=== PATIENT | male | born 1975 | race Caucasian/White ===

== ENCOUNTER 2024-11-30 12:13 | Inpatient (IN) | payer MEDICAID ==
[~2024-11-30] VITALS: Ht 175.3 cm; Wt 137.2 kg
--- NOTE | 2024-11-30 12:36 | Physician Documentation ---
History of Present Illness ~ Chief Complaint: Wound Stated Complaint: WOUND Time Seen by MD: 12:35 OK to notify your PCP?: Yes Source: patient, RN/MD, RN notes reviewed, old records Mode of Arrival: POV Exam Limitations: no limitations HPI 49 year old male with history of diabetes presents to the emergency department from wound care. Patient was not sent with a report from wound care but he states he is up here to receive antibiotics for the wound on his right foot. The wound is currently bandaged and his wound has been present for two years. He states his A1c is 7.2 and that he does not smoke. Wound care was called and inquired about additional information regarding the patient. They stated that yesterday the patient was working on a car and after all of that his wound became red and started discharging clear fluid. Additionally he began experiencing fevers and chills and they state he needs IV antibiotics. They state that his wound is deep but has not yet hit the bone. Patient denies any other associated symptoms at this time. Patient denies any other alleviating or exacerbating factors. Medication Reconciliation Allergies: Coded Allergies: No Known Allergies (Unverified , 04/16/23) Past Medical History Past Medical History: Diabetes Smoking Status: Former smoker Review of Systems All Other Systems at this time: Reviewed and Negative ROS As stated above in the HPI, otherwise all systems are reviewed and negative. Physical Exam Vital Signs: RN Vital Signs have been reviewed: Yes, Temperature: 98.8, Source: Oral, Heart Rate: 74, Respiratory Rate: 16, BP: 143/81, Pulse Oximetry: 96, Weight: 137.200 Oxygen Flow Rate: 0 Pulse Oximetry Reflects: adequate oxygenation Physical Exam General: The patient is well developed, well nourished, nontoxic appearing and is in no acute distress. Skin: Goodman, warm and dry with no rashes. HEENT: Head was normocephalic and atraumatic. Eyes - pupils equal, round, reactive to light and accommodation. Extraocular movements were intact. Conjunctivae were nonicteric. Ears - bilateral tympanic membranes were normal. The mouth and oropharynx were clear with moist mucous membranes. There were no pharyngeal exudates or erythema. Neck: Supple and nontender. There was no jugular venous distention, lymphadenopathy, thyromegaly or masses. Chest: Clear to auscultation bilaterally without wheezes, rales or rhonchi. No accessory muscle use. No dullness to percussion. Heart: Rate regular and rhythmic. S1, S2. No murmurs. Palpation of the chest wall was normal. No rubs or thrills. Abdomen: Soft, nontender and nondistended. Positive bowel sounds. No guarding or rebound. No hepatosplenomegaly or palpable masses. Extremities: Patients right foot is bandaged and he has an amputated toe. No cyanosis, clubbing or edema. The patient moves all extremities. Pulses were equal and symmetric. Neurologic: Cranial nerves II-XII were intact. Sensation was intact to light touch throughout. Motor strength was 5/5 in all four extremities. Deep tendon reflexes were intact in both upper and lower extremities. Psychologic: The patient was oriented to person, place and time. The patient demonstrated appropriate judgement and insight. Progress Progress Note 1230: The case was discussed with Dr. Valles who was informed on the patients case and kindly agreed to admission of the patient. Results/Orders Reviewed/noted all lab results: Yes Results/Orders Orders - TRISTON DEJESUS MD Ct Lower Extremity (11/30/24 13:50) Culture Blood (11/30/24 12:53) Page Hospitalist (11/30/24 12:55) Fill Out Med Reconciliation (11/30/24 12:55) Completed Orders - TRISTON DEJESUS MD Ct Lower Extremity (11/30/24 13:50) Normal Saline 1000ml (Sodium Chloride 10 (11/30/24 12:55) Procalcitonin (11/30/24 12:53) Vancomycin*Pharmacy To Dose* (Vancomycin (11/30/24 12:55) Piperacillin/Tazo 3.375gm/50ml (Zosyn 3. (11/30/24 12:55) Lacticsepsis (11/30/24 12:53) Vancomycin/Ns 1 Gm Add-Kyburz (Vancomyc (11/30/24 14:00) Medications Received in ER Medications (Trade) Dose Ordered Sig/Merissa Route PRN Reason Start Time Stop Time Status Last Admin Dose Admin (sodium chloride 1000ml IV soln) 2,000 ml ONCE ONCE IV 11/30/24 12:55 11/30/24 12:56 DC 11/30/24 13:40 2,000 ML Piperacillin/ Tazobactam/ Dextrose 50 ml @ 100 mls/hr ONCE ONCE IV 11/30/24 12:55 11/30/24 13:24 DC 11/30/24 13:39 100 MLS/HR Vital Signs 11/30/24 11/30/24 12:30 13:19 Temp 98.8 Pulse 74 Resp 16 16 B/P (MAP) 143/81 Pulse Ox 96 O2 Flow Rate 0 Laboratory Tests Test 11/30/24 13:10 Lactic Acid Level 1.5 Procalcitonin < 0.05 Microbiology Date/Time Source Procedure Growth Status 11/30/24 13:14 Blood Hand Left Blood Culture - Preliminary NEGATIVE (LESS THAN 24 HOURS) Resulted Re-Evaluation Re-Evaluation : Re-Evaluation: Improved Progress Patient was seen and examined. Patient was given reassurance. Patient was found to have a deep ulcer into the right great toe. Antibiotics were given patient was sent over from wound care were cultures were obtained laboratory work was just obtained. Patient is WBCs 7.8 H and H is 12 and 37 with 77 neutrophils. Sed rate is 78. Chemistry is also within normal limits. C- reactive protein is elevated 10.33. Tox screen is negative. Patient received antibiotics vancomycin as well as Zosyn. Patient received fluids. CT scan was obtained. Patient is otherwise doing much better and was admitted for additional wound care possible MRI to rule out osteomyelitis. Continuous desk monitor interpretation shows normal sinus rhythm heart rate 70s, no ectopy, normal, my interpretation. Pulse oximetry monitor interpretation shows normal oxygenation at 96% room air, normal, my interpretation. EKG/XRAY/CT/US/VASC/MRI CT : Impression CLINICAL INFORMATION: Infection. Osteomyelitis. TECHNIQUE: Axial CT images of the right foot were obtained without IV contrast. Coronal and sagittal reformatted images were obtained, reviewed, and stored. All CT scans at this medical facility are performed using dose modulation techniques as appropriate to a performed exam including the following: Automated exposure control was utilized; adjustment of the MA and/or KV according to patient size; and use of iterative reconstruction technique. CTDIvol = 16.38, 14.36, 0.07, 0.07 mGy DLP = 1151.7 mGy-cm COMPARISON: Radiographs dated 11/30/2024. FINDINGS: Postsurgical changes of prior amputation at the 1st MTP joint. There is moderate to marked soft tissue edema and locules of gas adjacent to the amputation site. There is a wound at the plantar aspect of the amputation site. No erosive changes are seen. No cortical destruction. The rest of the osseous structures appear intact. IMPRESSION: 1. Wound at the plantar aspect of the amputation stump of the 1st digit with associated soft tissue inflammatory changes, likely cellulitis and phlegmon. 2. No erosive changes or cortical destruction are seen to suggest osteomyelitis. Correlate with clinical findings. If there remains clinical suspicion for osteomyelitis, MRI could be obtained Electronically Signed by:BREEZY GOODE DO Date & Time: 11/30/24 4799 Ultrasound : Impression EXAM: [facility] VENOUS HISTORY: Swelling COMPARISON: [facility] VL VENOUS on DOS: 04/07/24 TECHNIQUE: Duplex Doppler evaluation of the deep venous systems of both lower extremities from the common femoral veins to the popliteal veins including color Doppler and spectral/pulsed waveform analysis was performed. FINDINGS: RIGHT SIDE: The common femoral vein demonstrates appropriate compressibility and waveform variability . There is compressibility/patency of the great saphenous vein at the proximal thigh . The femoral vein demonstrates appropriate compressibility and waveform variability . The deep femoral vein demonstrates appropriate compressibility and waveform variability . The popliteal vein demonstrates appropriate compressibility and waveform variability . There is normal compressibility at the tibioperoneal trunk. Foramina hypervascular right inguinal lymph node. LEFT SIDE: The common femoral vein demonstrates appropriate compressibility and waveform variability . There is compressibility/patency of the great saphenous vein at the proximal thigh . The femoral vein demonstrates appropriate compressibility and waveform variability . The deep femoral vein demonstrates appropriate compressibility and waveform variability . The popliteal vein demonstrates appropriate compressibility and waveform variability . There is normal compressibility at the tibioperoneal trunk. IMPRESSION: 1. No right or left femoropopliteal venous thrombosis. 2. Question reactive inguinal lymph node. If clinical concern/symptoms persist or worsen, short-interval follow-up study is suggested. Dictated by:CYNDY STOCK MD Dictation date and time:11/30/24 4472 Medical Decision Making Additional info obtained from: old records Differential Dx:Considerations: Include: Abscess, Cellulitis, Dressing change, Healing wound, Other Departure Time of Disposition: 15:01 Disposition: 01 HOME / SELF CARE / HOMELESS Admitted to Inpatient Unit: yes, to hospitalist Impression: Primary Impression: Osteomyelitis Qualified Codes: M86.671 - Other chronic osteomyelitis, right ankle and foot Additional Impression: Diabetic wound ulcer Condition: Stable Referrals: NO PRIMARY CARE PROVIDER (PCP) Education Educated: Patient Educated regarding: diagnosis, prognosis, need for follow up Signature Scribe Signature: Scribed for Triston Dejesus MD by Elia Naylor . 11/30/24 12:56 Attestation: The note accurately reflects work and decisions made by me.Triston Dejesus MD 11/30/24 12:36 TRISTON DEJESUS MD Nov 30, 2024 12:36 ELIA KING Nov 30, 2024 12:58
--- NOTE | 2024-11-30 13:31 | HISTORY AND PHYSICAL ---
History & Physical Providers to Chief complaint, a right foot and right distal lower leg pain swelling redness, right foot open wound plantar ~ History of Present Illness Reason for Admit\Complaint: As above History of Present Illness This is a 49 year old male with history of diabetes mellitus type 2, history of peripheral neuropathy bilateral lower leg, anemia hemoglobin 12.4, morbid obesity BMI 44, hypoalbuminemia, coronary artery disease [place] stent x1, right knee meniscectomy, presented today to emergency department chief complaint a right f oot pain open wound associated with redness swelling and warm to touch, in addition patient presents to the emergency department from wound care. Patient was not sent with a report from wound care but he sates he is up here to receive antibiotics for the wound on his right foot. The wound is currently bandaged and his wound has been present for two years. He states his A1c is 7.2 and that he does not smoke. Wound care was called and inquired about additional information regarding the patient. They stated that yesterday the patient was working on a car and after all of that his wound became red and started discharging clear fluid. Ad ditionally he began experiencing fevers and chills and they state he needs IV antibiotics. They state that his wound is deep but has not yet hit the bone. Patient denies any other associated symptoms at this time. Patient denies any other alleviating or exacerbating factors. In emergency department he was evaluated by physician was diagnosed with a right foot cellulitis, diabetic open wound plantar, started on IV antibiotics, and decision was made to admit patient for further evaluation treatment. No additional complaint or concern. Allergies: Coded Allergies: No Known Allergies (Unverified , 04/16/23) Active prescriptions I reviewed reconciled Home Medications Pending Past Medical History Past Medical History As in HPI Past Surgical History Surgical History Comment As in HPI Past Social History Social History Comment Deny illicit drug abuse tobacco alcohol use live with the family good social support Health Maintenance Health Maintenance Noncontributory ROS ROS Constitutional : no fever , no chills, or weakness. No diaphoresis. Allergic/Immunologic, no lymphadenopathy, no hives, no skin eruptions. Eyes, no recent visual changes, no eye pain, no photophobia. Ears, nose, mouth, throat, no sore throat, no nosebleed, no ear pain. Cardiovascular, no palpitations, skipped beats, chest pain, no peripheral edema, Respiratory, no dyspnea, orthopnea, cough, hemoptysis, chest wall pain. Gastrointestinal, no abdominal pain, nausea, vomiting, constipation or diarrhea. : no dysuria, hematuria, pelvic pain, urethral d/c. Endocrine, no polyuria, polydipsia, recent unintentional weight gain or loss. Hematologic/Lymphatic, no petechiae, no enlarged lymph nodes, no bone pain. Integumentary, no rash, no skin lesions, Musculoskeletal, no muscle aches, or pain, no muscle cramps, no recent change in gait, positive for right foot open wound plantar, pain swelling as well Neurological, no dizziness, no headache, no syncope, no paresthesia. Psychiatric, no delusions, visual hallucinations, or hearing hallucinations. ROS - in rest is as in HPI. Exam Vitals: Vital Signs Date Time Temp Pulse Resp B/P (MAP) Pulse Ox O2 Delivery O2 Flow Rate FiO2 11/30/24 13:19 16 11/30/24 12:30 98.8 74 96 0 Vital signs, stable ,afebrile. Pulse Oximetry reflects adequate oxygenation. BMI is 44, weight 137 kg General: well developed, well nourished. Awake , alert, and oriented x4, resting comfortably in the bed, in no acute distress . Skin: Warm, dry, no pallor, no rash or petechiae. HEENT: Atraumatic, normocephalic, EOMI, anicteric sclera B; pink conjunctiva; PERRLA, normal oropharynx, moist oral and nasal mucosa. Tympanic membrane , nose , throat clear. Neck: Trachea midline. Supple, full range of motion, no JVD, bruit , he patojugular reflex , lymphadenopathy or masses, or other lesions Cardiac: Regular rhythm, regular rate no murmurs, rubs, or gallops. Normal S1 and S2, no S3 noticed. PMI is normal. Respiratory: Equal breath sounds bilaterally, no tachypnea; lungs clear to auscultation bilaterally, no wheezing ,rub or rales, or crackles. Chest wall is symmetric and without deformity. No signs of trauma. Chest wall is nontender. No signs of respiratory distress. Resonance is normal upon percussion bilaterally. Gastrointestinal: Abdomen symmetric, non-distended, soft, non-tender, normal bowel sounds x4 quadrant, normoactive, no hepatosplenomegaly , no masses , no bruit, no flank pain bilaterally. No voluntary guarding, rebound, or rigidity. No tenderness to percussion. No pulsatile masses. Equal femoral pulses. No Li's sign or McBurney point tenderness. Back; no CVA tenderness bilaterally, no deformities. Neck and back are without deformity as well. No tenderness noted on palpation of the spinous processes. Spinous processes are midline. Cervical, thoracic, and lumbar paraspinal muscles are not tender and are without spasm. : normal external genitalia, without lesions, swelling, masses or tenderness. Musculoskeletal: Extremities, normal range of motion, non-tender, muscle strength 5/5 x 4. Negative Homans signs bilaterally on lower extremity. Distal pulses full symmetrical, no clubbing, cyanosis , edema. Locally, right foot and distal right lower leg, plus two edema hot to touch, tender to palpation, a right foot distal plantar open wound approximately 2 cm in diameter, associated with scattered seropurulent discharge Neurological: Speech is clear, alert, and oriented x 4. No motor or sensory deficit, deep tendon reflexes normal, cerebellar intact. Cranial nerves II-XII intact. Psych: Alert and or appropriate, normal affect. Vascular: Good distal pulses, which are equal x4; capillary refill less than 2 seconds. Lymphatic, no lymphadenopathy. Advance Care Planning Advanced Care plannin - 30 Minutes Additional Plan Assessment Diabetes mellitus type 2 poor control A right foot cellulitis A right distal lower leg cellulitis A right distal foot plantar diabetic open wound, infected Morbid obesity BMI 44 Peripheral neuropathy bilateral lower extremity secondary to diabetes mellitus type 2 Anemia hemoglobin 12.4 Coronary artery disease, history of [place] stent times on History of right knee meniscectomy Plan IV antibiotics, analgesics CT right foot pending Hyperglycemia sliding scale Doppler venous ultrasound of right lower extremity pending Additional lab work pending Wound care consult Reconciled home medications May need orthopedic surgeon evaluation DVT gastropathy prophylaxis addressed Sepsis Screening Reassessment Date: Nov 30, 2024 Date of Service: Nov 30, 2024 Billing Provider: DEVANTE GARLAND MD Common Visit Codes: 33239-PAJISTC INP/OBS CARE (HIGH) Secondary Visit Codes: 72484-[id number] CARE PLAN 30 MINUTES DEVANTE GARLAND MD Nov 30, 2024 13:31
[2024-11-30] MEDS: piperacillin/tazo 3.375gm/50ml 50 ML IV ONE (13:39)
[2024-11-30] MEDS ORDERED: magnesium hydroxide 30ml (MOM) UD suspension PO PRN ×2 (13:40→13:45)
[2024-11-30] MEDS ORDERED: potassium Cl 20 mEq SR tablet PO PRN ×2 (13:40)
[2024-11-30] MEDS ORDERED: magnesium sulf-water 2g/50mL 50 ML IV PRN (13:40)
[2024-11-30] MEDS ORDERED: potassium Cl 40MEQ/1/2NS 520ml 520 ML IV PRN (13:40)
[2024-11-30] MEDS ORDERED: ondansetron/PF 4mg/2ml inj IV PRN ×2 (13:40→13:45)
[2024-11-30] MEDS ORDERED: mag hydrox/Alum hydrox/simeth 30ml oral suspension PO PRN ×2 (13:40→13:45)
[2024-11-30] MEDS: normal saline 1000ML IV soln IV ONE (13:40)
[2024-11-30] MEDS ORDERED: magnesium Cl slow-release 64mg tablet PO PRN (13:40)
[2024-11-30] MEDS ORDERED: magnesium sulf-water 4G/100mL 100 ML IV PRN (13:40)
[2024-11-30] MEDS ORDERED: acetaminophen 325mg tablet PO PRN ×3 (13:40→13:45)
[2024-11-30] MEDS ORDERED: ondansetron 4mg rapidly disintigrating tab PO PRN (13:45)
[2024-11-30] MEDS ORDERED: morphine 2 MG/ML inj. syringe IV PRN ×2 (13:45)
[2024-11-30] MEDS ORDERED: metoclopramide 5 mg/ml inj IV PRN (13:45)
[2024-11-30] MEDS ORDERED: acetaminophen 650mg rectal suppository RC PRN (13:45)
[2024-11-30] MEDS ORDERED: diphenhydrAMINE 25mg capsule PO PRN (13:45)
[2024-11-30] MEDS ORDERED: HYDROcodone/acetaminophen 10/325mg tab PO PRN (13:45)
[2024-11-30] MEDS ORDERED: HYDROcodone/acetaminophen 5mg/325mg tablet PO PRN (13:45)
[2024-11-30] MEDS ORDERED: diphenhydrAMINE 50 mg/ml inj IV PRN (13:45)
[2024-11-30] MEDS ORDERED: bisacodyl 10mg suppository rectal RC PRN (13:45)
[2024-11-30] MEDS ORDERED: glucagon, human recombinant 1mg kit SUBCUT PRN (13:50)
[2024-11-30] MEDS ORDERED: dextrose 50%-water 50ml dispensing syringe IV PRN ×2 (13:50)
[2024-11-30] MEDS ORDERED: DEXTROSE 15 GM of carb/4 tabs (each vial/BOTTLE has 4 tablets) PO PRN ×2 (13:50)
[2024-11-30 14:48] LABS: APTT 28 SECONDS (22-32); INR 1.1 INR; PROTHROMBIN TIME 10.9 SECONDS (9.0-12.0)
--- NOTE | 2024-11-30 14:52 | RADIOLOGY REPORT ---
CLINICAL INFORMATION: Infection. Osteomyelitis. TECHNIQUE: Axial CT images of the right foot were obtained without IV contrast. Coronal and sagittal reformatted images were obtained, reviewed, and stored. All CT scans at this medical facility are pe rformed using dose modulation techniques as appropriate to a performed exam including the following: Automated exposure control was utilized; adjustment of the MA and/or KV according to patient size; an d use of iterative reconstruction technique. CTDIvol = 16.38, 14.36, 0.07, 0.07 mGy DLP = 1151.7 mGy- cm COMPARISON: Radiographs dated 11/30/2024. FINDINGS: Postsurgical changes of prior amputation at the 1st MTP joint. There is moderate to marked soft tissue edema and locules of gas adjacent to the amputation site. There is a wound at the planta r aspect of the amputation site. No erosive changes are seen. No cortical destruction. The rest of t he osseous structures appear intact. IMPRESSION: 1. Wound at the plantar aspect of the amputation stump of the 1st digit with associated soft tissue i nflammatory changes, likely cellulitis and phlegmon. 2. No erosive changes or cortical destruction are seen to suggest osteomyelitis. Correlate with clini sam findings. If there remains clinical suspicion for osteomyelitis, MRI could be obtained
[2024-11-30 14:54] LABS: HEMOGLOBIN A1C 8.7 % (4.5-6.2)
--- NOTE | 2024-11-30 14:54 | VASCULAR REPORT ---
EXAM: [facility] VL VENOUS HISTORY: Swelling COMPARISON: [facility] VL VENOUS on DOS: 04/07/24 TECHNIQUE: Duplex Doppler evaluation of the deep venous systems of both lower extremities from the co mmon femoral veins to the popliteal veins including color Doppler and spectral/pulsed waveform analys is was performed. FINDINGS: RIGHT SIDE: The common femoral vein demonstrates appropriate compressibility and waveform variability . There is compressibility/patency of the great saphenous vein at the proximal thigh . The femoral vein demonstrates appropriate compressibility and waveform variability . The deep femoral vein demonstrates appropriate compressibility and waveform variability . The popliteal vein demonstrates appropriate compressibility and waveform variability . There is normal compressibility at the tibioperoneal trunk. Foramina hypervascular right inguinal lymph node. LEFT SIDE: The common femoral vein demonstrates appropriate compressibility and waveform variability . There is compressibility/patency of the great saphenous vein at the proximal thigh . The femoral vein demonstrates appropriate compressibility and waveform variability . The deep femoral vein demonstrates appropriate compressibility and waveform variability . The popliteal vein demonstrates appropriate compressibility and waveform variability . There is normal compressibility at the tibioperoneal trunk. IMPRESSION: 1. No right or left femoropopliteal venous thrombosis. 2. Question reactive inguinal lymph node. If clinical concern/symptoms persist or worsen, short-interval follow-up study is suggested.
[2024-11-30 15:01] LABS: CREATINE KINASE 106 U/L (39-308); MAGNESIUM 2.3 MG/DL (1.5-2.4); PRO BRAIN NATRIURETIC PEPTIDE 232 PG/ML (0-125); THYROID STIMULATING HORMONE 2.08 ulU/ml (0.34-4.50)
[2024-11-30] MEDS: vancomycin/NS 1 GM ADD-VANTAGE 250 ML X 1 DOSE IV ONE (15:03)
[2024-11-30] MEDS: normal saline 1000ml 1,000 ML IV SCH (15:04)
[2024-11-30] MEDS: INSULIN LISPRO 100 UNIT/ML INSULN.PEN MULTI-DOSE SQ SCH (17:00)
[2024-11-30 17:12] LABS: BILIRUBIN,URINE NEGATIVE (Neg); CLARITY,URINE CLEAR (Clear); COLOR,URINE YELLOW (Yellow); GLUCOSE, URINE >=1000 mg/dl (Neg); KETONES,URINE NEGATIVE (Neg); LEUKOCYTE ESTERASE ,URINE NEGATIVE (Neg); NITRITES, URINE NEGATIVE (Neg); OCCULT BLOOD,URINE NEGATIVE (Neg); PROTEIN,URINE NEGATIVE (Neg)
[2024-11-30 17:20] LABS: URINE AMPHETAMINE SCREEN NEGATIVE (Neg); URINE BARBITUATE SCREEN NEGATIVE (Neg); URINE BENZODIAZEPINES SCREEN NEGATIVE (Neg); URINE CANNABINOID SCREEN NEGATIVE (Neg); URINE COCAINE SCREEN NEGATIVE (Neg); URINE METHADONE SCREEN NEGATIVE (Neg); URINE OPIATE SCREEN NEGATIVE (Neg); URINE PHENCYCLIDINE SCREEN NEGATIVE (Neg)
[2024-11-30] MEDS: heparin, porcine 5000 units/ml vial SQ SCH (17:24)
[2024-11-30 17:26] LABS: UA COLLECTION TYPE NON-SPECIFIED
[2024-11-30 17:29] LABS: SQUAMOUS EPITHELIAL CELL,UR FEW /LPF (FEW)
[2024-11-30 17:31] LABS: BACTERIA,URINE 1+ /HPF (Neg); RBC,URINE 0-2 /HPF (0-2); WBC,URINE 0-4 /HPF (0-4)
[2024-11-30 18:00] VITALS: BP 115/69; PULSE 84; RESP 18; TEMP 97.9; O2SAT 96
[2024-11-30] MEDS: K and/or MAG REPLACEMENT MC SCH (19:12)
[2024-11-30] MEDS: piperacillin/tazo 4.5gm/100ml 100 ML IV SCH (19:27)
[2024-11-30] MEDS: docusate sod 100mg capsule PO SCH (19:28)
[2024-11-30] MEDS ORDERED: docusate sod 100mg capsule PO SCH (20:00)
[2024-11-30] MEDS ORDERED: VANCOMYCIN 1GM 200ML H20 (PEG) 200 ML IV SCH (20:00)
[2024-11-30] MEDS ORDERED: temazepam 15mg capsule PO PRN (21:00)
[2024-11-30 22:00] VITALS: BP 118/52; PULSE 91; RESP 18; TEMP 98.3; O2SAT 96
[2024-11-30] MEDS: insulin glargine (Lantus) pen - multi-dose SQ SCH (22:24)
[2024-11-30] MEDS: vancomycin/NS 1 GM ADD-VANTAGE 250 ML IV SCH (23:40)
[2024-12-01 05:46] LABS: BASOPHILS % (AUTO) 0.5 % (0-1); EOSINOPHILS # (AUTO) 0.2 X10'3 (0-0.9); EOSINOPHILS % (AUTO) 2.4 % (0-6); HEMATOCRIT 35.6 % (42.0-52.0); HEMOGLOBIN 11.8 g/dl (14.0-17.9); LYMPHOCYTES # (AUTO) 1.3 X10'3 (1.1-4.8); LYMPHOCYTES % (AUTO) 15.2 % (21-51); MEAN CORPUSCULAR HEMOGLOBIN 26.6 PG (27.0-31.0); MEAN CORPUSCULAR HGB CONC 33.3 g/dL (33.0-36.5); MEAN CORPUSCULAR VOLUME 79.8 FL (78-98); MONOCYTES # (AUTO) 0.6 X10'3 (0-0.9); MONOCYTES % (AUTO) 7.1 % (2-12); NEUTROPHILS # (AUTO) 6.6 X10'3 (1.8-7.7); NEUTROPHILS % (AUTO) 74.8 % (42-75); PLATELET COUNT 225 X10'3 (140-440); RED BLOOD COUNT 4.46 X10'6 (4.70-6.10); RED CELL DISTRIBUTION WIDTH 15.9 % (11.5-14.5); WHITE BLOOD COUNT 8.9 X10'3 (4.5-11.0)
[2024-12-01 06:00] VITALS: BP 147/69; PULSE 85; RESP 18; TEMP 99.7; O2SAT 96
[2024-12-01 06:06] LABS: ALANINE AMINOTRANSFERASE 17 U/L (12-78); ALBUMIN 2.8 G/DL (3.4-5.0); ALBUMIN/GLOBULIN RATIO 0.6 (1.1-1.5); ALKALINE PHOSPHATASE 86 IU/L (46-116); ANION GAP 10 (8-16); ASPARTATE AMINO TRANSFERASE 13 U/L (10-37); BILIRUBIN,TOTAL 0.8 MG/DL (0.1-1.0); BLOOD UREA NITROGEN 12 MG/DL (7-18); CALCIUM 8.6 MG/DL (8.5-10.1); CHLORIDE 103 MMOL/L (99-107); CHOL/HDL RATIO 3.5 (0.00-4.99); CHOLESTEROL 114 MG/DL (0-200); GLUCOSE 229 MG/DL (70-104); HDL CHOLESTEROL 33 MG/DL (35-60); LDL CHOLESTEROL 62 MG/DL (50-100); POTASSIUM 3.9 MMOL/L (3.5-5.1); SODIUM 138 MMOL/L (135-145); TOTAL CARBON DIOXIDE 24.6 MMOL/L (24-32); TOTAL PROTEIN 7.2 G/DL (6.4-8.2); TRIGLYCERIDES 116 MG/DL (20-135); eCRCL 88 ML/MIN; eGFR 79 ML/MIN
[2024-12-01 10:00] VITALS: BP 141/75; PULSE 87; RESP 15; TEMP 97.9; O2SAT 96
[2024-12-01] MEDS: VANCOMYCIN LEVEL IV ONE (13:30)
[2024-12-01] MEDS ORDERED: GLIP2.5T29 PO (15:09)
[2024-12-01] MEDS ORDERED: CEPH750C7 PO (15:09)
[2024-12-01] MEDS ORDERED: METF-437 PO (15:09)
[2024-12-01] MEDS ORDERED: JUVEN Smoothie Arginine/Glut./Ca2+Bmb (Juven 19.3pkt) 240ml cup PO SCH (17:30)
--- NOTE | 2024-12-01 17:53 | DISCHARGE SUMMARY ---
Discharge Summary Providers to CC ~ feels better today less pain in the foot and distal leg Discharge Summary Assessment Diabetes mellitus type 2 poor control A right foot cellulitis A right distal lower leg cellulitis A right distal foot plantar diabetic open wound, infected Morbid obesity BMI 44 Peripheral neuropathy bilateral lower extremity secondary to diabetes mellitus type 2 Anemia hemoglobin 12.4 Coronary artery disease, history of IA stent times on History of right knee meniscectomy Admission Diagnosis: R foot celulitis; DM Admission Diagnosis Comment: Diabetes mellitus type 2 poor control A right foot cellulitis A right distal lower leg cellulitis A right distal foot plantar diabetic open wound, infected Morbid obesity BMI 44 Peripheral neuropathy bilateral lower extremity secondary to diabetes mellitus type 2 Anemia hemoglobin 12.4 Coronary artery disease, history of IA stent times on History of right knee meniscectomy Hospital Course DATE OF ADMISSION: November 30, 2024 DATE OF DISCHARGE: December 01, 2024 Discharge Diagnosis\Comment: Diabetes mellitus type 2 poor control A right foot cellulitis A right distal lower leg cellulitis A right distal foot plantar diabetic open wound, infected Morbid obesity BMI 44 Peripheral neuropathy bilateral lower extremity secondary to diabetes mellitus type 2 Anemia hemoglobin 12.4 Coronary artery disease, history of IA stent times on History of right knee meniscectomy Operations\Procedures: None Consultants: None Complications: None Condition on DC: Stable Discharge Summary: This is a 49 year old male with history of diabetes mellitus type 2, history of peripheral neuropathy bilateral lower leg, anemia hemoglobin 12.4, morbid obesity BMI 44, hypoalbuminemia, coronary artery disease IA stent x1, right knee meniscectomy, presented today to emergency department chief complaint a right foot pain open wound associated with redness swelling and warm to touch, in addition patient presents to the emergency department from wound care. Patient was not sent with a report from wound care but he sates he is up here to receive antibiotics for the wound on his right foot. The wound is currently bandaged and his wound has been present for two years. He states his A1c is 7.2 and that he does not smoke. Wound care was called and inquired about additional information regarding the patient. They stated that yesterday the patient was working on a car and after all of that his wound became red and started discharging clear fluid. Additionally he began experiencing fevers and chills and they state he needs IV antibiotics. They state that his wound is deep but has not yet hit the bone. Patient denies any other associated symptoms at this time. Patient denies any other alleviating or exacerbating factors. In emergency department he was evaluated by physician was diagnosed with a right foot cellulitis, diabetic open wound plantar, started on IV antibiotics, and decision was made to admit patient for further evaluation treatment. No additional complaint or concern. After admission patient significantly improved, his pain of the right lower extremity and foot decrease, mild decrease in swelling redness, but patient elected to be discharged for family emergency reasons, I explained to the patient to continue inpatient treatment and evaluation patient elected to be discharged, medication reconciled, recommended to follow with PCP Wound Care in the morning, recommende d to return to emergency department if condition worsens, risk of severe complications explained patient agreed, today on physical exam Vital signs, stable ,afebrile. Pulse Oximetry reflects adequate oxygenation. General: well developed, well nourished. Awake , alert, and oriented x4, resting comfortably in the bed, in no acute distress . Skin: Warm, dry, no pallor, no rash or petechiae. HEENT: Atraumatic, normocephalic, EOMI, anicteric sclera B; pink conjunctiva; PERRLA, normal oropharynx, moist oral and nasal mucosa. Tympanic membrane , nose , throat clear. Neck: Trachea midline. Supple, full range of motion, no JVD, bruit , hepatojugular reflex , lymphadenopathy or masses, or other lesions Cardiac: Regular rhythm, regular rate no murmurs, rubs, or gallops. Normal S1 and S2, no S3 noticed. PMI is normal. Respiratory: Equal breath sounds bilaterally, no tachypnea; lungs clear to auscultation bilaterally, no wheezing ,rub or rales, or crackles. Chest wall is symmetric and without deformity. No signs of trauma. Chest wall is nontender. No signs of respiratory distress. Resonance is normal upon percussion bilateral ly. Gastrointestinal: Abdomen symmetric, non-distended, soft, non-tender, normal bowel sounds x4 quadrant, normoactive, no hepatosplenomegaly , no masses , no bruit, no flank pain bilaterally. No voluntary guarding, rebound, or rigidity. No tenderness to percussion. No pulsatile masses. Equal femoral pulses. No Li's sign or McBurney point tenderness. Back; no CVA tenderness bilaterally, no deformities. Neck and back are without deformity as well. No tenderness noted on palpation of the spinous processes. Spinous processes are midline. Cervical, thoracic, and lumbar paraspinal muscles are not tender and are without spasm. : normal external genitalia, without lesions, swelling, masses or tenderness. Musculoskeletal: Extremities, normal range of motion, non-tender, muscle strength 5/5 x 4. Negative Homans signs bilaterally on lower extremity. Distal pulses full symmetrical, no clubbing, cyanosis , edema. Locally, right foot dressing clean dry intact, neurovascular grossly intact, a r ight distal lower leg plus four edema mild redness CVA tender to palpation Neurological: Speech is clear, alert, and oriented x 4. No motor or sensory deficit, deep tendon reflexes normal, cerebellar intact. Cranial nerves II-XII intact. Psych: Alert and or appropriate, normal affect. Vascular: Good distal pulses, which are equal x4; capillary refill less than 2 seconds. Lymphatic, no lymphadenopathy. *Problems/Diagnosis: (1) Cellulitis Total Time Spent on D/C: > 30 Minutes Date of Service: Dec 01, 2024 Billing Provider: DEVANTE GARLAND MD Common Visit Codes: 32600-ZXC/OBS DISCH DAY >30min DEVANTE GARLAND MD Dec 01, 2024 17:53
[2024-12-01] MEDS ORDERED: VANCOmycin 1250MG/NS 250ml Bag 250 ML IV SCH (23:00)
[2024-12-02] MEDS ORDERED: VANCOMYCIN LEVEL IV ONE (22:30)
== END 2024-12-01 17:30 | disposition home or self-care (01) | DRG 383 ==
LOC: ER 12:13 → ED HOLD 13:41 → ORTHO 4S 17:40
PROVIDERS: ADMIT Family Medicine; ATTEND Family Medicine
DX: L03.115 Cellulitis of right lower limb (principal); E11.42 Type 2 diabetes mellitus with diabetic polyneuropathy; M86.671 Other chronic osteomyelitis, right ankle and foot; S91.301A Unspecified open wound, right foot, initial encounter; E11.621 Type 2 diabetes mellitus with foot ulcer; L97.519 Non-pressure chronic ulcer of other part of right foot with unspecified severity; D64.9 Anemia, unspecified; E11.69 Type 2 diabetes mellitus with other specified complication; E11.65 Type 2 diabetes mellitus with hyperglycemia; E66.01 Morbid (severe) obesity due to excess calories; I25.10 Atherosclerotic heart disease of native coronary artery without angina pectoris; X58.XXXA Exposure to other specified factors, initial encounter; Z68.41 Body mass index [BMI] 40.0-44.9, adult; I25.2 Old myocardial infarction; Z87.891 Personal history of nicotine dependence; Y93.89 Activity, other specified; Y92.89 Other specified places as the place of occurrence of the external cause; Y99.8 Other external cause status
CPT/HCPCS: 36415; 73700; 80053; 80061; 80202; 80305; 81001; 82550; 82948; 83036; 83605; 83735; 83880; 84100; 84145; 84443; 85025; 85610; 85730; 87040; 87081; 93971; 96365; 99285; A6253; A6446; A6449; G0378; J1644; J1815; J2543; J3370; J7030